=== PATIENT | female | born 1950 | race Caucasian/White ===

== ENCOUNTER 2020-09-27 17:26 | Emergency (ER) | payer MEDICARE ==
[~2020-09-27] VITALS: Ht 167.6 cm; Wt 68.2 kg
[2020-09-27] MEDS ORDERED: NEXI20CA PO (17:54)
[2020-09-27] MEDS ORDERED: ATOR40TA75 PO (17:54)
[2020-09-27] MEDS ORDERED: IBUP-1114 PO (17:54)
[2020-09-27] MEDS ORDERED: MORPHINE 2 MG/ML 1ML VIAL (J2270) IV ONE (18:30)
[2020-09-27] MEDS ORDERED: LR 1,000 ML IV SCH (18:40)
[2020-09-27 19:15] VITALS: BP 172/86
[2020-09-27 19:29] LABS: RSV AMPLIFICATION NEGATIVE (NEGATIVE)
== END 2020-09-27 19:35 | disposition short-term general hospital (02) ==
LOC: M ED 17:26
DX: T20.20XA Burn of second degree of head, face, and neck, unspecified site, initial encounter (principal); T23.202A Burn of second degree of left hand, unspecified site, initial encounter; T23.201A Burn of second degree of right hand, unspecified site, initial encounter; T31.0 Burns involving less than 10% of body surface; W40.1XXA Explosion of explosive gases, initial encounter; Y92.009 Unspecified place in unspecified non-institutional (private) residence as the place of occurrence of the external cause; Y93.9 Activity, unspecified; Y99.9 Unspecified external cause status; E78.5 Hyperlipidemia, unspecified
CPT/HCPCS: 87631; 96361; 96374; 99285; J2270